=== PATIENT | female | born 1995 | race Caucasian/White ===

== ENCOUNTER 2017-06-06 23:52 | Emergency (ER) | payer OTHER, MEDICAID ==
[2017-06-07 01:24] VITALS: BP 103/68
== END 2017-06-07 01:24 | disposition home or self-care (01) ==
LOC: ED 23:52
DX: L05.91 Pilonidal cyst without abscess (principal)

== ENCOUNTER 2017-06-09 21:19 | Emergency (ER) | payer OTHER, MEDICAID ==
[2017-06-09 21:25] VITALS: BP 118/77
== END 2017-06-09 22:27 | disposition home or self-care (01) ==
LOC: ED 21:19
DX: L05.91 Pilonidal cyst without abscess (principal)

== ENCOUNTER 2017-08-28 03:50 | Emergency (ER) | payer OTHER, MEDICAID ==
[~2017-08-28] VITALS: Ht 162.6 cm; Wt 59.4 kg
[2017-08-28 07:11] VITALS: BP 100/50
== END 2017-08-28 07:11 | disposition home or self-care (01) ==
LOC: ED 03:50
DX: R10.32 Left lower quadrant pain (principal)
CPT/HCPCS: Q0092

== ENCOUNTER 2017-08-29 02:55 | Emergency (ER) | payer OTHER, MEDICAID ==
[~2017-08-29] VITALS: Ht 162.6 cm; Wt 57.8 kg
[2017-08-29 03:01] VITALS: Ht 162.6 cm; Wt 57.8 kg
[2017-08-29 04:32] LABS: BASOPHIL % 0.3 % (0-2); PLATELET COUNT 260 x10^3mcL (130-400)
[2017-08-29 04:37] LABS: CALCIUM 9.3 mg/dL (8.5-10.1); CARBON DIOXIDE 23.2 mmol/L (21-32); CHLORIDE SERUM 104 mmol/L (98-107); CREATININE SERUM 0.9 mg/dL (0.6-1.0); GFR1 > 60 mL/min; GLUCOSE SERUM 110 mg/dL (74-106); POTASSIUM SERUM 4.1 mmol/L (3.5-5.1); RED CELL DISTRIBUTION WIDTH 15.5 % (11.5-14.5); SODIUM SERUM 138 mmol/L (136-145)
[2017-08-29 04:42] LABS: UA SPECIFIC GRAVITY 1.025 (1.005-1.035); microscopic required? YES; urine erythrocyte 3+ (NEGATIVE)
[2017-08-29 04:55] LABS: ALBUMIN 4.3 g/dL (3.4-5.0)
[2017-08-29 04:56] LABS: ALKALINE PHOSPHATASE 105 U/L (46-116); ALT/SGPT 25 U/L (14-59); AST/SGOT 17 U/L (15-37); BILIRUBIN TOTAL 0.3 mg/dL (0.20-1.00)
[2017-08-29 06:47] VITALS: BP 120/62
== END 2017-08-29 06:48 | disposition home or self-care (01) ==
LOC: ED 02:55
PROVIDERS: Emergency Medicine
DX: N83.292 Other ovarian cyst, left side (principal)
CPT/HCPCS: 36415

== ENCOUNTER 2017-10-24 13:36 | Emergency (ER) | payer OTHER, MEDICAID ==
[~2017-10-24] VITALS: Ht 162.6 cm; Wt 56.7 kg
[2017-10-24 13:42] VITALS: Ht 162.6 cm; Wt 56.7 kg
[2017-10-24 16:11] VITALS: BP 112/79
== END 2017-10-24 16:11 | disposition home or self-care (01) ==
LOC: ED 13:36
DX: K52.9 Noninfective gastroenteritis and colitis, unspecified (principal)

== ENCOUNTER 2018-01-23 16:01 | Emergency (ER) | payer MEDICAID ==
[~2018-01-23] VITALS: Ht 160 cm; Wt 59.0 kg
[2018-01-23 16:06] VITALS: Ht 160 cm; Wt 59.0 kg
[2018-01-23 16:33] LABS: microscopic required? NO
[2018-01-23 16:55] LABS: urine erythrocyte NEGATIVE (NEGATIVE)
[2018-01-23 16:56] LABS: BASOPHIL % 0.4 % (0-2); PLATELET COUNT 238 x10^3mcL (130-400)
[2018-01-23 16:58] LABS: CALCIUM 9.4 mg/dL (8.5-10.1); CARBON DIOXIDE 24.6 mmol/L (21-32); CHLORIDE SERUM 102 mmol/L (98-107); CREATININE SERUM 0.8 mg/dL (0.6-1.0); GFR1 > 60 mL/min; GLUCOSE SERUM 89 mg/dL (74-106); POTASSIUM SERUM 3.7 mmol/L (3.5-5.1); SODIUM SERUM 139 mmol/L (136-145)
[2018-01-23 17:03] LABS: ALBUMIN 3.8 g/dL (3.4-5.0); ALKALINE PHOSPHATASE 109 U/L (46-116); ALT/SGPT 23 U/L (14-59); AMPHETAMINE QUAL UR NONE DETECTED (See below); AST/SGOT 17 U/L (15-37); BILIRUBIN TOTAL 0.31 mg/dL (0.20-1.00); TOTAL PROTEIN, SERUM 7.9 g/dL (6.4-8.2)
[2018-01-24 06:54] VITALS: BP 97/51
== END 2018-01-24 06:54 | disposition home or self-care (01) ==
LOC: ED 16:01
PROVIDERS: Emergency Medicine
DX: T39.011A Poisoning by aspirin, accidental (unintentional), initial encounter (principal); R45.851 Suicidal ideations; Z04.6 Encounter for general psychiatric examination, requested by authority; Y92.89 Other specified places as the place of occurrence of the external cause
CPT/HCPCS: 36415; G0480

== ENCOUNTER 2019-01-02 07:19 | Emergency (ER) | payer OTHER ==
[~2019-01-02] VITALS: Ht 160 cm; Wt 61.7 kg
[2019-01-02 07:25] VITALS: BP 139/70; Ht 160 cm; Wt 61.7 kg
== END 2019-01-02 09:14 | disposition home or self-care (01) ==
LOC: ED 07:19
DX: H00.011 Hordeolum externum right upper eyelid (principal)